=== PATIENT | male | born 1995 ===

== ENCOUNTER 2019-08-05 06:58 | Emergency (ER) | payer OTHER ==
[~2019-08-05] VITALS: Ht 167.6 cm; Wt 61.2 kg
[2019-08-05] MEDS ORDERED: CALTRATE 600+D1 EAC1 PO (07:15)
== END 2019-08-05 10:05 | disposition home or self-care (01) ==
LOC: ER 06:58
DX: S63.65 Sprain of metacarpophalangeal joint of other and unspecified finger(s) (principal); X58.XXXD Exposure to other specified factors, subsequent encounter